=== PATIENT | male | born 1965 | race Caucasian/White ===

== ENCOUNTER 2019-03-07 12:08 | Emergency (ER) | payer BC ==
[2019-03-07 13:06] VITALS: BP 158/97
--- NOTE | 2019-03-07 13:33 | UC ---
Back Pain HPI - HPI Summary HPI Summary: No specific injury---has pain in right side of lower back radiating down buttock --has had similar pain 3 years ago---some radiation in to thigh - History of Current Complaint Chief Complaint: UCBackPain Stated Complaint: BACK PAIN Time Seen by Provider: 03/07/19 13:24 Hx Obtained From: Patient Onset/Duration: Sudden Onset, Lasting Days - 2, Still Present Timing: Constant Pain Intensity: 8 Pain Scale Used: 0-10 Numeric Back Pain: Is Discrete @ Character: Aching, Spasmodic, Stiffness Aggravating Factor(s): Movement Associated Signs And Symptoms: Negative: Numbness, Tingling Related History: Previous Back Injury - Allergies/Home Medications Allergies/Adverse Reactions: Allergies Allergy/AdvReac Type Severity Reaction Status Date / Time lisinopril Allergy Coughing Verified 03/07/19 13:06 Penicillins Allergy Rash Verified 03/07/19 13:06 Home Medications: Home Medications Losartan TAB* [Cozaar TAB*] 25 mg PO DAILY 03/07/19 [History Confirmed 03/07/19] Sertraline HCl [Zoloft] 50 mg PO BEDTIME 03/07/19 [History Confirmed 03/07/19] PMH/Surg Hx/FS Hx/Imm Hx Cardiovascular History: Hypertension Psychological History: Depression - Surgical History Surgical History: Yes Surgery Procedure, Year, and Place: tonsillectomy as a child. hernia repair as a child - Family History Known Family History: Positive: None Family History: R & n/C - Social History Occupation: Employed Full-time Lives: With Family Alcohol Use: None Substance Use Type: None Substance Use Comment - Amount & Last Used: pt states he drinks a lot of mountain dew during the week while working. Smoking Status (MU): Never Smoked Tobacco Review of Systems All Other Systems Reviewed And Are Negative: Yes Constitutional: Positive: Negative Skin: Positive: Negative Eyes: Positive: Negative ENT: Positive: Negative Respiratory: Positive: Negative Cardiovascular: Positive: Negative Gastrointestinal: Positive: Negative Genitourinary: Positive: Negative Motor: Positive: Decreased ROM - limbar spine Neurovascular: Positive: Negative Musculoskeletal: Positive: Arthralgia, Myalgia Neurological: Positive: Negative Psychological: Positive: Negative Is Patient Immunocompromised?: No Physical Exam Triage Information Reviewed: Yes Appearance: Well-Appearing, Pain Distress - mild--guarded gait, Obese Vital Signs: Initial Vital Signs Temp 96.2 F 03/07/19 13:03 Pulse 74 03/07/19 13:03 Resp 18 03/07/19 13:03 BP 158/97 03/07/19 13:03 Pulse Ox 98 03/07/19 13:03 Vital Signs Reviewed: Yes Eye Exam: Normal Eyes: Positive: Conjunctiva Clear ENT Exam: Normal ENT: Positive: Normal ENT inspection, Hearing grossly normal. Negative: Trismus , Muffled voice, Hoarse voice Neck exam: Normal Neck: Positive: Supple, Nontender Respiratory Exam: Normal Respiratory: Positive: Chest non-tender, No respiratory distress, No accessory muscle use Cardiovascular Exam: Normal Cardiovascular: Positive: RRR, Brisk Capillary Refill Musculoskeletal Exam: Other Musculoskeletal: Positive: Strength Intact, No Edema, ROM Limited @ - lumbar spine Neurological Exam: Normal Neurological: Positive: Alert, Muscle Tone Normal Psychological Exam: Normal Skin Exam: Normal Back Pain Course/Dx - Course Course Of Treatment: gentle exercise and movement prednisone, flexeril and vocoden for more sever pain---back exercises follow with pcp this week if symptoms do not improve/ resolve - Differential Dx/Diagnosis Provider Diagnosis: Sciatic nerve pain Discharge ED - Sign-Out/Discharge Documenting (check all that apply): Patient Departure All imaging exams completed and their final reports reviewed: No Studies - Discharge Plan Condition: Stable Disposition: HOME Prescriptions: Cyclobenzaprine TAB* [Flexeril 10 MG TAB*] 10 mg PO TID PRN #15 tab PRN Reason: Spasms - Muscle Hydrocodone/Acetaminophen [Hydrocodone-Acetamin 5-325 mg] 1 each PO TID PRN #5 tablet MDD 3 PRN Reason: pain predniSONE TAB* [Deltasone TAB*] 50 mg PO DAILY #5 tab Patient Education Materials: Acute Low Back Pain (ED), Hypertension (ED), Lower Back Exercises (ED) Referrals: Shahbaz Palmer MD [Primary Care Provider] - 1 Week - Billing Disposition and Condition Condition: STABLE Disposition: Home
== END 2019-03-07 13:42 | disposition home or self-care (01) ==
LOC: UCEAST 12:08
DX: M54.31 Sciatica, right side (principal); I10 Essential (primary) hypertension; F32.9 Major depressive disorder, single episode, unspecified; Z88.0 Allergy status to penicillin; Z88.8 Allergy status to other drugs, medicaments and biological substances; Z79.899 Other long term (current) drug therapy
CPT/HCPCS: 99202; G0463

== ENCOUNTER 2023-04-29 00:36 | Inpatient (IN) ==
[2023-04-29] MEDS: Iodixanol (CONTRAST) 320 MG/ML 100 ML SDV IV ONE (00:58)
[2023-04-29 01:01] LABS: ABS Basophils 0.1 10^3/uL (0.0-0.1); ABS Eosinophils 0.4 10^3/uL (0.0-0.5); ABS Lymphocytes 1.9 10^3/uL (1.0-4.8); ABS Monocytes 0.7 10^3/uL (0.0-1.1); ABS Neutrophils 7.5 10^3/uL (1.5-7.6); ABS Nucleated RBC 0.01 10^3/ul; Eosinophil % 4.1 %; Hemoglobin 15.6 g/dL (13.2-16.3); Lymphocyte % 17.7 %; Mean Corpuscular Hemoglobin 31.2 pg (27-33); Mean Corpuscular Hgb Conc 35.5 g/dL (31-36); Mean Platelet Volume 7.2 fL (7.5-11.2); Platelet Count 251 10^3/uL (150-450); Red Cell Distribution Width 13.7 % (12-17); White Blood Count 10.6 10^3/uL (3.6-10.2)
[2023-04-29 01:05] LABS: Activated Partial Thrombo Time 31.9 seconds (26.0-38.0); INR 1.1 (0.83-1.13)
[2023-04-29 01:16] LABS: Albumin 4.1 g/dL (3.2-5.2); Albumin/Globulin Ratio 1.2 (1-3); Calcium 9.5 mg/dL (8.6-10.3); Creatinine, Serum 1.24 mg/dL (0.67-1.17); Direct Bilirubin 0.1 mg/dL (0.03-0.18); Globulin 3.3 g/dL (2-4); HDL Cholesterol 39.5 mg/dL; Indirect Bilirubin 0.6 mg/dL (0.3-1.0); Potassium 3.9 mmol/L (3.5-5.0); Total Bilirubin 0.7 mg/dL (0.2-1.0); Total Protein 7.4 g/dL (6.4-8.9); eGFR CKD-EPI 67.4 (>60)
[2023-04-29 02:17] LABS: High Sensitivity Troponin 1 Hr 3 pg/mL (<20)
[2023-04-29] MEDS ORDERED: Albuterol HFA INHALER 8 gm MDI INH PRN (03:47)
[2023-04-29 05:26] LABS: Urine Appearance Clear; Urine Bacteria Absent /HPF (Absent); Urine Bilirubin Negative (Negative); Urine Blood Negative (Negative); Urine Color Yellow; Urine Glucose Negative (Negative); Urine Ketones Negative (Negative); Urine Nitrite Negative (Negative); Urine Protein 1+ (>=30 mg/dL) (Negative); Urine Red Blood Cell Absent /HPF (0-Trace); Urine Specific Gravity >1.050 (1.002-1.030); Urine Urobilinogen Negative (Negative); Urine White Blood Cell Absent /HPF (0-Trace)
[2023-04-29 05:31] LABS: Urine Benzodiazepine Screen None Detected (None Detect); Urine Cannabinoids Screen None Detected (None Detect); Urine Opiates Screen None Detected (None Detect)
[2023-04-29 05:44] LABS: Alcohol, S < 13 mg/dL (<13)
[2023-04-29 06:00] LABS: PCO2 Arterial 43 mmHg (35-45); PO2 Arterial 96 mmHg (80-100)
[2023-04-29] MEDS ORDERED: Sulfur Hexaflouride MICROSPHR 25 MG VIAL ONE (10:27)
[2023-04-29 10:52] LABS: TSH Ultra Thyroid Stim Horm 2.84 mcIU/mL (0.34-5.60)
[2023-04-29 11:03] LABS: Vitamin B12 349 pg/mL (180-914)
[2023-04-29] MEDS: Lactated Ringers 1000 ml BAG 1,000 ML IV ONE (18:37)
[2023-04-29] MEDS: methylPREDNISolone SOD SUCC 125 mg 2 ML VIAL IV ONE (23:17)
[2023-04-29] MEDS: Enoxaparin 40 MG/0.4 ML SYR SUBCUT SCH (23:18)
[2023-04-29] MEDS: Nystatin TOP POWDER 15 GM BTL TOPICAL SCH (23:20)
[2023-04-30] MEDS: Lactated Ringers 1000 ml BAG 1,000 ML IV SCH (04:19)
[2023-04-30 06:02] LABS: ABS Lymphocytes 0.5 10^3/uL (1.0-4.8); ABS Monocytes 0.1 10^3/uL (0.0-1.1); ABS Neutrophils 8.4 10^3/uL (1.5-7.6); ABS Nucleated RBC 0.01 10^3/ul; Eosinophil % 0.1 %; Hemoglobin 15.9 g/dL (13.2-16.3); Lymphocyte % 5.7 %; Mean Corpuscular Hemoglobin 31.2 pg (27-33); Mean Corpuscular Hgb Conc 35.3 g/dL (31-36); Mean Corpuscular Volume 88.3 fL (80-97); Mean Platelet Volume 7.5 fL (7.5-11.2); Nucleated Red Blood Cells % 0.1 %/100WBC (0.0-0.8); Platelet Count 232 10^3/uL (150-450); Red Cell Distribution Width 13.8 % (12-17)
[2023-04-30 06:33] LABS: Calcium 9.3 mg/dL (8.6-10.3); Creatinine, Serum 1.17 mg/dL (0.67-1.17); Potassium 4.2 mmol/L (3.5-5.0); eGFR CKD-EPI 72.3 (>60)
[2023-04-30 06:39] LABS: Magnesium 2.3 mg/dL (1.9-2.7)
[2023-05-01 06:12] LABS: ABS Basophils 0.1 10^3/uL (0.0-0.1); ABS Eosinophils 0.1 10^3/uL (0.0-0.5); ABS Lymphocytes 1.8 10^3/uL (1.0-4.8); ABS Monocytes 0.7 10^3/uL (0.0-1.1); ABS Neutrophils 7.5 10^3/uL (1.5-7.6); ABS Nucleated RBC 0.01 10^3/ul; Eosinophil % 1.4 %; Hematocrit 41.3 % (38-53); Hemoglobin 14.6 g/dL (13.2-16.3); Lymphocyte % 17.7 %; Mean Corpuscular Hemoglobin 30.9 pg (27-33); Mean Corpuscular Hgb Conc 35.2 g/dL (31-36); Mean Corpuscular Volume 87.7 fL (80-97); Mean Platelet Volume 7.2 fL (7.5-11.2); Nucleated Red Blood Cells % 0.1 %/100WBC (0.0-0.8); Platelet Count 222 10^3/uL (150-450); Red Blood Count 4.71 10^6/uL (4.06-5.63); Red Cell Distribution Width 13.8 % (12-17); White Blood Count 10.2 10^3/uL (3.6-10.2)
[2023-05-01 06:51] LABS: Calcium 8.9 mg/dL (8.6-10.3); Creatinine, Serum 1.18 mg/dL (0.67-1.17); Magnesium 2.3 mg/dL (1.9-2.7); Potassium 3.5 mmol/L (3.5-5.0); eGFR CKD-EPI 71.5 (>60)
[2023-05-01 10:59] LABS: Hemoglobin 14.9 g/dL (13.2-16.3)
[2023-05-01] MEDS: Iohexol 350 (CONTRAST) 500 ML MDV IV ONE (14:13)
[2023-05-01] MEDS: Acetaminophen IV 1 GM/100ML 1,000 MG/100 ML BAG IV PRN (14:43)
[2023-05-01] MEDS: NS 0.9% 1000 ml BAG 1,000 ML IV ONE (14:43)
[2023-05-01 23:58] LABS: Hematocrit 40.5 % (38-53); Hemoglobin 14.1 g/dL (13.2-16.3)
[2023-05-02 06:21] LABS: ABS Basophils 0.1 10^3/uL (0.0-0.1); ABS Eosinophils 0.3 10^3/uL (0.0-0.5); ABS Lymphocytes 1.4 10^3/uL (1.0-4.8); ABS Monocytes 0.5 10^3/uL (0.0-1.1); ABS Neutrophils 5.5 10^3/uL (1.5-7.6); ABS Nucleated RBC 0.02 10^3/ul; Eosinophil % 3.7 %; Hematocrit 41.8 % (38-53); Hemoglobin 14.8 g/dL (13.2-16.3); Lymphocyte % 17.7 %; Mean Corpuscular Hemoglobin 31.2 pg (27-33); Mean Corpuscular Hgb Conc 35.4 g/dL (31-36); Mean Corpuscular Volume 88.1 fL (80-97); Mean Platelet Volume 7.3 fL (7.5-11.2); Nucleated Red Blood Cells % 0.2 %/100WBC (0.0-0.8); Platelet Count 221 10^3/uL (150-450); Red Blood Count 4.74 10^6/uL (4.06-5.63); Red Cell Distribution Width 13.6 % (12-17); White Blood Count 7.7 10^3/uL (3.6-10.2)
[2023-05-02 06:35] LABS: Calcium 8.6 mg/dL (8.6-10.3); Creatinine, Serum 1.03 mg/dL (0.67-1.17); Magnesium 2.2 mg/dL (1.9-2.7); Potassium 3.6 mmol/L (3.5-5.0); eGFR CKD-EPI 84.2 (>60)
[2023-05-02 10:35] VITALS: BP 145/80
[2023-05-02] MEDS ORDERED: Enoxaparin 40 MG/0.4 ML SYR SUBCUT SCH (13:00)
== END 2023-05-02 10:21 | DRG 45 ==
LOC: ED 00:36 → EDHOLD 03:43 → SUATTDRO 03:43 → MEDTELE 12:36
PROVIDERS: ADMIT Internal Medicine; ATTEND Student in an Organized Health Care Education/Training Program

== ENCOUNTER 2023-05-02 10:00 | Inpatient (IN) ==
[2023-05-02] MEDS ORDERED: Senna TAB 8.6 mg TAB PO PRN (13:49)
[2023-05-02] MEDS: Enoxaparin 40 MG/0.4 ML SYR SUBCUT SCH (16:56)
[2023-05-03 06:49] LABS: ABS Basophils 0.1 10^3/uL (0.0-0.1); ABS Eosinophils 0.3 10^3/uL (0.0-0.5); ABS Lymphocytes 1.5 10^3/uL (1.0-4.8); ABS Monocytes 0.6 10^3/uL (0.0-1.1); ABS Neutrophils 5.5 10^3/uL (1.5-7.6); ABS Nucleated RBC 0.01 10^3/ul; Hematocrit 40.6 % (38-53); Hemoglobin 14.3 g/dL (13.2-16.3); Lymphocyte % 18.1 %; Mean Corpuscular Hgb Conc 35.3 g/dL (31-36); Mean Corpuscular Volume 87.7 fL (80-97); Mean Platelet Volume 7.2 fL (7.5-11.2); Nucleated Red Blood Cells % 0.1 %/100WBC (0.0-0.8); Platelet Count 216 10^3/uL (150-450); Red Blood Count 4.63 10^6/uL (4.06-5.63); Red Cell Distribution Width 13.6 % (12-17)
[2023-05-03 07:14] LABS: Albumin 3.7 g/dL (3.2-5.2); Albumin/Globulin Ratio 1.5 (1-3); Calcium 8.8 mg/dL (8.6-10.3); Creatinine, Serum 1.02 mg/dL (0.67-1.17); Globulin 2.5 g/dL (2-4); Potassium 3.6 mmol/L (3.5-5.0); Total Bilirubin 0.9 mg/dL (0.2-1.0); Total Protein 6.2 g/dL (6.4-8.9); eGFR CKD-EPI 85.2 (>60)
[2023-05-03] MEDS: Potassium Chlor 20 meq TAB.ER PO SCH (09:11)
[2023-05-03] MEDS: Aspirin EC 81 mg TAB.EC (enteric coated) PO SCH (09:11)
[2023-05-06] MEDS: guaiFENesin 100 mg/5 ml LIQ unit dose cup PO PRN (19:13)
[2023-05-06] MEDS: Albuterol HFA INHALER 8 gm MDI INH PRN (20:53)
[2023-05-07 06:47] LABS: ABS Eosinophils 0.3 10^3/uL (0.0-0.5); ABS Lymphocytes 1.6 10^3/uL (1.0-4.8); ABS Monocytes 0.7 10^3/uL (0.0-1.1); ABS Neutrophils 5.7 10^3/uL (1.5-7.6); Eosinophil % 3.8 %; Hematocrit 40.6 % (38-53); Hemoglobin 14.4 g/dL (13.2-16.3); Lymphocyte % 19.5 %; Mean Corpuscular Hemoglobin 30.9 pg (27-33); Mean Corpuscular Hgb Conc 35.4 g/dL (31-36); Mean Corpuscular Volume 87.3 fL (80-97); Mean Platelet Volume 7.6 fL (7.5-11.2); Platelet Count 222 10^3/uL (150-450); Red Blood Count 4.65 10^6/uL (4.06-5.63); Red Cell Distribution Width 13.6 % (12-17); White Blood Count 8.4 10^3/uL (3.6-10.2)
[2023-05-07] MEDS: guaiFENesin/CODIENE 100mg/10mg 5 ML UDC PO SCH (21:45)
[2023-05-10 06:51] LABS: ABS Basophils 0.1 10^3/uL (0.0-0.1); ABS Eosinophils 0.3 10^3/uL (0.0-0.5); ABS Lymphocytes 1.5 10^3/uL (1.0-4.8); ABS Monocytes 0.7 10^3/uL (0.0-1.1); ABS Neutrophils 5.3 10^3/uL (1.5-7.6); Eosinophil % 3.7 %; Hematocrit 39.7 % (38-53); Hemoglobin 13.8 g/dL (13.2-16.3); Lymphocyte % 18.9 %; Mean Corpuscular Hemoglobin 30.5 pg (27-33); Mean Corpuscular Hgb Conc 34.8 g/dL (31-36); Mean Corpuscular Volume 87.7 fL (80-97); Mean Platelet Volume 7.6 fL (7.5-11.2); Platelet Count 224 10^3/uL (150-450); Red Blood Count 4.52 10^6/uL (4.06-5.63); Red Cell Distribution Width 13.7 % (12-17); White Blood Count 7.8 10^3/uL (3.6-10.2)
[2023-05-10 08:27] LABS: Albumin 3.8 g/dL (3.2-5.2); Albumin/Globulin Ratio 1.5 (1-3); Calcium 9.5 mg/dL (8.6-10.3); Creatinine, Serum 1.24 mg/dL (0.67-1.17); Globulin 2.5 g/dL (2-4); Total Bilirubin 0.7 mg/dL (0.2-1.0); Total Protein 6.3 g/dL (6.4-8.9); eGFR CKD-EPI 67.4 (>60)
[2023-05-10] MEDS: Potassium Chlor 20 meq TAB.ER PO ONE (13:34)
[2023-05-10] MEDS: Potassium Chlor 20 meq TAB.ER PO SCH (19:53)
[2023-05-10 21:23] LABS: Magnesium 2.1 mg/dL (1.9-2.7)
[2023-05-12 07:00] LABS: Calcium 9.3 mg/dL (8.6-10.3); Creatinine, Serum 1.17 mg/dL (0.67-1.17); Potassium 3.1 mmol/L (3.5-5.0); eGFR CKD-EPI 72.3 (>60)
[2023-05-12] MEDS: Potassium Chlor 20 meq TAB.ER PO ONE (16:40)
[2023-05-12] MEDS: Potassium Chlor 20 meq TAB.ER PO SCH ×2 (20:26→21:52)
[2023-05-14 07:09] LABS: Calcium 9.3 mg/dL (8.6-10.3); Creatinine, Serum 1.19 mg/dL (0.67-1.17); Potassium 3.4 mmol/L (3.5-5.0); eGFR CKD-EPI 70.8 (>60)
[2023-05-14] MEDS: Chlorhexidine MOUTHWASH 0.12% 15 ML UDC SWISH SPIT SCH (15:22)
[2023-05-15] MEDS: Magnesium Hydroxide LIQ 30 ML UDC PO PRN (10:53)
[2023-05-17 06:52] LABS: ABS Basophils 0.1 10^3/uL (0.0-0.1); ABS Eosinophils 0.3 10^3/uL (0.0-0.5); ABS Lymphocytes 1.4 10^3/uL (1.0-4.8); ABS Monocytes 0.5 10^3/uL (0.0-1.1); ABS Neutrophils 4.4 10^3/uL (1.5-7.6); Eosinophil % 4.5 %; Hematocrit 40.3 % (38-53); Hemoglobin 14.1 g/dL (13.2-16.3); Lymphocyte % 20.7 %; Mean Corpuscular Volume 88.6 fL (80-97); Mean Platelet Volume 7.3 fL (7.5-11.2); Platelet Count 235 10^3/uL (150-450); Red Blood Count 4.55 10^6/uL (4.06-5.63); Red Cell Distribution Width 13.4 % (12-17); White Blood Count 6.6 10^3/uL (3.6-10.2)
[2023-05-17 07:31] LABS: Albumin 3.9 g/dL (3.2-5.2); Albumin/Globulin Ratio 1.6 (1-3); Calcium 9.3 mg/dL (8.6-10.3); Creatinine, Serum 1.15 mg/dL (0.67-1.17); Globulin 2.4 g/dL (2-4); Potassium 4.2 mmol/L (3.5-5.0); Total Bilirubin 0.8 mg/dL (0.2-1.0); Total Protein 6.3 g/dL (6.4-8.9); eGFR CKD-EPI 73.8 (>60)
[2023-05-18] MEDS: Potassium Chlor 20 meq TAB.ER PO SCH (07:57)
[2023-05-22 05:41] VITALS: BP 138/86
== END 2023-05-22 13:35 | disposition home or self-care (01) | DRG 45 ==
LOC: PMRU 11:05
PROVIDERS: ADMIT Physical Medicine & Rehabilitation; ATTEND Physical Medicine & Rehabilitation